=== PATIENT | male | born 1960 | race Caucasian/White ===

== ENCOUNTER 2017-05-18 09:31 | Emergency (ER) | payer SELFPAY ==
[2017-05-18] MEDS ORDERED: Aspirin 81 MG Tab.Chew PO ONE (09:40)
[2017-05-18] MEDS ORDERED: Sodium Chloride 0.9% 10 ML Syringe FLUSH PRN (09:40)
[2017-05-18] MEDS ORDERED: Tenecteplase 50 MG Kit IV ONE (09:42)
[2017-05-18] MEDS ORDERED: Heparin Sodium 5,000 Units/ML Vial IVPUSH ONE (09:43)
[2017-05-18] MEDS ORDERED: Nitroglycerin/D5W 25 MG/250 ML BOTTLE IV SCH (09:45)
[2017-05-18] MEDS ORDERED: Heparin Sodium/D5W 25,000 UNITS/500 ML BAG IV SCH (09:45)
[2017-05-18] MEDS ORDERED: Tenecteplase 50 MG Kit ONE (09:49)
[2017-05-18] MEDS: Nitroglycerin 0.4 MG Tab.SL SL PRN ×3 (10:03→10:12)
[2017-05-18] MEDS ORDERED: Heparin Sodium/D5W 500 ML ONE (10:04)
--- NOTE | 2017-05-18 10:05 | EDM.PDOC ---
ED HPI GENERAL MEDICAL PROBLEM - General Chief Complaint: Chest Pain Stated Complaint: [facility] Time Seen by Provider: 05/18/17 09:40 Source of Information: Reports: Patient, EMS History Limitations: Reports: No Limitations - History of Present Illness INITIAL COMMENTS - FREE TEXT/NARRATIVE: The patient presents with chest pain. The patient says this started on Sunday. He has shortness of breath with it. He has chills, nausea, and vomiting. He thought he may have had a cold He had congestion, runny nose, slight cough and chills. He did try some cold medicine but that did not help. The pain would come and go in the middle of his chest. Today it was constant and more severe and he is diaphoretic with it. He says the pain is like a pressure. He has a history of HTN but no history of diabetes, or high cholesterol. He has a family history of heart disease in his family. Onset: Gradual Duration: Day(s): Location: Reports: Chest Quality: Reports: Pressure Severity: Moderate Improves with: Reports: None Worsens with: Reports: None Associated Symptoms: Reports: Chest Pain, Cough, Fever/Chills, Nausea/Vomiting, Shortness of Breath. 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 [Unable to Verify Home Med List] 05/18/17 [History] ED ROS GENERAL - Review of Systems Review Of Systems: See Below Constitutional: Reports: Chills. Denies: Fever HEENT: Reports: Other (Congestion and runny nose) Respiratory: Reports: Shortness of Breath, Cough Cardiovascular: Reports: Chest Pain Endocrine: Reports: No Symptoms GI/Abdominal: Reports: No Symptoms : Reports: No Symptoms Musculoskeletal: Reports: No Symptoms ED EXAM, GENERAL - Physical Exam Exam: See Below Exam Limited By: No Limitations General Appearance: Alert, No Apparent Distress Ears: Normal External Exam Nose: Normal Inspection Head: Atraumatic, Normocephalic Neck: Normal Inspection Respiratory/Chest: No Respiratory Distress, Lungs Clear, Decreased Breath Sounds Cardiovascular: Regular Rate, Rhythm, No Edema, No Murmur GI/Abdominal: Soft, Non-Tender, No Organomegaly, No Mass Back Exam: Normal Inspection Extremities: Normal Inspection Neurological: Alert, Oriented, No Motor/Sensory Deficits EKG INTERPRETATION EKG Date: 05/18/17 Time: 09:35 Rhythm: Other (sinus tachycardia) Rate (Beats/Min): 108 [place]: Normal P-Wave: Present QRS: Normal ST-T: Elevated (anteriolateral leads) QT: Normal EKG Interpretation Comments: STEMI involving the anteriolateral leads Course - Vital Signs Last Recorded V/S: Last Vital Signs Temp 97.4 F 05/18/17 09:38 Pulse 106 H 05/18/17 09:38 Resp 16 05/18/17 09:38 BP 136/92 H 05/18/17 09:38 Pulse Ox 95 05/18/17 09:38 - Orders/Labs/Meds Orders: Active Orders 24 hr Category Date Time Status Cardiac Monitoring [RC] . DIRECTED Care 05/18/17 09:40 Active EKG Documentation Completion [RC] STAT Care 05/18/17 09:42 Active Oxygen Therapy [RC] PRN Care 05/18/17 09:40 Active Peripheral IV Care [RC] . DIRECTED Care 05/18/17 09:42 Active Chest 1V Frontal [CR] Stat Exams 05/18/17 09:42 Ordered CBC W/O DIFF,HEMOGRAM [HEME] MOTH@0700 Lab 05/21/17 07:00 Ordered CBC W/O DIFF,HEMOGRAM [HEME] MOTH@0700 Lab 05/24/17 07:00 Ordered CBC W/O DIFF,HEMOGRAM [HEME] MOTH@0700 Lab 05/28/17 07:00 Ordered CBC W/O DIFF,HEMOGRAM [HEME] MOTH@0700 Lab 05/31/17 07:00 Ordered CBC W/O DIFF,HEMOGRAM [HEME] MOTH@0700 Lab 06/04/17 07:00 Ordered CBC W/O DIFF,HEMOGRAM [HEME] MOTH@0700 Lab 06/07/17 07:00 Ordered CBC WITH AUTO DIFF [HEME] Stat Lab 05/18/17 09:40 Ordered COMPREHENSIVE METABOLIC PN,CMP [CHEM] Stat Lab 05/18/17 09:40 Ordered TROPONIN I [CHEM] Stat Lab 05/18/17 09:40 Ordered Heparin Sodium/D5W [Heparin 25,000 Units in D5W 500 ML] Med 05/18/17 09:45 Active 25,000 units in 500 ml IV TITRATE Nitroglycerin [Nitrostat] Med 05/18/17 09:40 Active 0.4 mg SL Q5M PRN Nitroglycerin/D5W [Nitroglycerin 25 MG/D5W 250 ML] Med 05/18/17 09:45 Active 25 mg in 250 ml IV TITRATE Sodium Chloride 0.9% [Saline Flush] Med 05/18/17 09:40 Active 10 ml FLUSH ASDIRECTED PRN Peripheral IV Insertion Adult [OM.PC] Stat Oth 05/18/17 09:40 Ordered Medication Orders Heparin Sodium/Dextrose (Heparin 25,000 Units In D5w 500 Ml) 25,000 units in 500 mls @ 24.494 mls/hr IV TITRATE HORACIO; 9 UNITS/KG/HR PRN Reason: Protocol Nitroglycerin/Dextrose (Nitroglycerin 25 Mg/D5w 250 Ml) 25 mg in 250 mls @ 6 mls/hr IV TITRATE HORACIO; 10 MCG/MIN PRN Reason: Protocol Nitroglycerin (Nitrostat) 0.4 mg SL Q5M PRN PRN Reason: Chest Pain Stop: 05/19/17 09:41 Sodium Chloride (Saline Flush) 10 ml FLUSH ASDIRECTED PRN PRN Reason: Keep Vein Open Last Admin: 05/18/17 09:48 Dose: 10 ml Meds: Medications Generic Name Dose Route Start Last Admin Trade Name Freq PRN Reason Stop Dose Admin Heparin Sodium/Dextrose 25,000 units in 500 mls @ 24.494 mls/hr 05/18/17 09: 45 Heparin 25,000 Units In D5w 500 Ml IV TITRATE HORACIO Protocol 9 UNITS/KG/HR Nitroglycerin/Dextrose 25 mg in 250 mls @ 6 mls/hr 05/18/17 09:45 Nitroglycerin 25 Mg/D5w 250 Ml IV TITRATE HORACIO Protocol 10 MCG/MIN Nitroglycerin 0.4 mg 05/18/17 09:40 Nitrostat SL 05/19/17 09:41 Q5M PRN Chest Pain Sodium Chloride 10 ml 05/18/17 09:40 05/18/17 09:48 Saline Flush FLUSH 10 ml ASDIRECTED PRN Administration Keep Vein Open Discontinued Medications Generic Name Dose Route Start Last Admin Trade Name Freq PRN Reason Stop Dose Admin Aspirin 324 mg 05/18/17 09:40 Aspirin PO 05/18/17 09:41 ONETIME ONE Heparin Sodium (Porcine) 5,000 units 05/18/17 09:43 Heparin Sodium IVPUSH 05/18/17 09:44 ONETIME ONE Tenecteplase 50 mg 05/18/17 09:42 05/18/17 09:49 Tnkase IV 05/18/17 09:43 50 mg ONETIME ONE Administration Protocol Tenecteplase Confirm 05/18/17 09:49 Tnkase Administered 05/18/17 09:50 Dose 50 mg .ROUTE .[facility] ONE - Re-Assessments/Exams Free Text/Narrative Re-Assessment/Exam: 05/18/17 10:09 The patient came by [facility]. We did an EKG right away and it showed ST elevation in the anterolateral leads. He is having a STEMI. I ordered an IV saline lock, TnKase 50mg IV, heparin bolus of 5,000units IV, heparin drip of 1,000 units/hr, nitro sublingual 0.4mg Q5min X 3, nitro drip, and CXR. His CXR looks good and he has no contraindications for TnKase. He is having a STEMI. I called [facility] and talked with Dr Segura the auto battery builder and he accepted the patient. Departure - Departure Time of Disposition: 10:15 Disposition: DC/Tfer to Acute Hospital 02 Reason for Transfer *Q: Primary PCI Indicated Condition: Serious Clinical Impression: STEMI (ST elevation myocardial infarction) Qualifiers: Involved coronary artery: other coronary artery Qualified Code(s): I21.29 - ST elevation (STEMI) myocardial infarction involving other sites - My Orders Last 24 Hours: My Active Orders 05/18/17 09:40 Cardiac Monitoring [RC] . DIRECTED Oxygen Therapy [RC] PRN CBC WITH AUTO DIFF [HEME] Stat COMPREHENSIVE METABOLIC PN,CMP [CHEM] Stat TROPONIN I [CHEM] Stat Nitroglycerin [Nitrostat] 0.4 mg SL Q5M PRN Sodium Chloride 0.9% [Saline Flush] 10 ml FLUSH ASDIRECTED PRN Peripheral IV Insertion Adult [OM.PC] Stat 05/18/17 09:42 EKG Documentation Completion [RC] STAT Peripheral IV Care [RC] . DIRECTED Chest 1V Frontal [CR] Stat 05/18/17 09:45 Heparin Sodium/D5W [Heparin 25,000 Units in D5W 500 ML] 25,000 units in 500 ml IV TITRATE Nitroglycerin/D5W [Nitroglycerin 25 MG/D5W 250 ML] 25 mg in 250 ml IV TITRATE 05/21/17 07:00 CBC W/O DIFF,HEMOGRAM [HEME] MOTH@69905/24/17 07:00 CBC W/O DIFF,HEMOGRAM [HEME] MOTH@69905/28/17 07:00 CBC W/O DIFF,HEMOGRAM [HEME] MOTH@69905/31/17 07:00 CBC W/O DIFF,HEMOGRAM [HEME] MOTH@69906/04/17 07:00 CBC W/O DIFF,HEMOGRAM [HEME] MOTH@69906/07/17 07:00 CBC W/O DIFF,HEMOGRAM [HEME] MOTH@07 - Assessment/Plan Last 24 Hours: My Active Orders 05/18/17 09:40 Cardiac Monitoring [RC] . DIRECTED Oxygen Therapy [RC] PRN CBC WITH AUTO DIFF [HEME] Stat COMPREHENSIVE METABOLIC PN,CMP [CHEM] Stat TROPONIN I [CHEM] Stat Nitroglycerin [Nitrostat] 0.4 mg SL Q5M PRN Sodium Chloride 0.9% [Saline Flush] 10 ml FLUSH ASDIRECTED PRN Peripheral IV Insertion Adult [OM.PC] Stat 05/18/17 09:42 EKG Documentation Completion [RC] STAT Peripheral IV Care [RC] . DIRECTED Chest 1V Frontal [CR] Stat 05/18/17 09:45 Heparin Sodium/D5W [Heparin 25,000 Units in D5W 500 ML] 25,000 units in 500 ml IV TITRATE Nitroglycerin/D5W [Nitroglycerin 25 MG/D5W 250 ML] 25 mg in 250 ml IV TITRATE 05/21/17 07:00 CBC W/O DIFF,HEMOGRAM [HEME] MOTH@69905/24/17 07:00 CBC W/O DIFF,HEMOGRAM [HEME] MOTH@69905/28/17 07:00 CBC W/O DIFF,HEMOGRAM [HEME] MOTH@69905/31/17 07:00 CBC W/O DIFF,HEMOGRAM [HEME] MOTH@69906/04/17 07:00 CBC W/O DIFF,HEMOGRAM [HEME] MOTH@0706/07/17 07:00 CBC W/O DIFF,HEMOGRAM [HEME] MOTH@07
[2017-05-18] MEDS ORDERED: Morphine 2 MG/ML Syringe IVPUSH ONE (10:19)
[2017-05-18] MEDS ORDERED: Morphine 2 MG/ML Syringe ONE ×2 (10:23→10:31)
[2017-05-18] MEDS: Morphine 2 MG/ML Syringe IVPUSH ONE ×3 (10:47→11:00)
--- NOTE | 2017-05-18 10:59 | CR ---
Chest: Portable view of the chest was obtained. Comparison: No prior study. Heart is mildly enlarged. Mild atelectasis is seen within the left mid and lower lung. Left retrocardiac region not well seen on current exam. Lungs otherwise are clear. Plate and screws noted within the right clavicle. Degenerative endplate spurring is partially visualized within the spine. Several old right-sided rib fractures are present. Impression: 1. Left retrocardiac region not well seen. Probable atelectasis within the left mid and lower lung is present. 2. Cardiomegaly and other incidental findings. Diagnostic code #3
== END 2017-05-18 10:30 ==
LOC: JD.ED 09:31
DX: I21.09 ST elevation (STEMI) myocardial infarction involving other coronary artery of anterior wall (principal); I10 Essential (primary) hypertension
CPT/HCPCS: 36415; 71045; 80053; 84484; 85025; 93005; 96365; 96368; 96374; 96375; 99285; A9270; J1644; J2270; J3101; J7050; 93010